=== PATIENT | female | born 1945 | race Caucasian/White ===

== ENCOUNTER → 2020-05-28 | Outpatient (CLI) | payer MEDICARE | END | disposition home or self-care (01) | LOC: SHCH 10:44 | PROVIDERS: ATTEND Internal Medicine Cardiovascular Disease | DX: R01.1 Cardiac murmur, unspecified (principal) | CPT/HCPCS: 93306; 93356 ==

== ENCOUNTER → 2020-06-01 | Outpatient (CLI) | payer MEDICARE ==
[~2020-06-01] MED LIST: AMINOPHYLLINE 250MG/10 ML VIAL IV SCH; REGADENOSON 0.4 MG/5 ML PF SYG IVP SCH
--- NOTE | 2020-06-01 11:56 | NUR ---
1031 AMINOPHYLLINE 50 MG GIVEN SLOW IV PUSH PER PROTOCOL FOR NAUSEA AND HEADACHE POST LEXISCAN. 1034 2ND DOSE OF AMINOPHYLLINE 50 MG GIVEN SLOW IV PUSH FOR PERSISTENT HEADACHE. PT REPORTS HEAD FEELS LIKE IT IS GOING TO EXPLODE. NAUSEA HAS SUBSIDED. 1036 PT REPORTS HEADACHE IS NOW SUBSIDING.
== END | disposition home or self-care (01) ==
LOC: SHCH 08:12 → EDUNIT# 09:00
PROVIDERS: ATTEND Internal Medicine Cardiovascular Disease
DX: I20.9 Angina pectoris, unspecified (principal); R07.9 Chest pain, unspecified
CPT/HCPCS: 78452; 93017; 96374; A9500 ×2; J2785

== ENCOUNTER → 2021-12-08 | Outpatient (CLI) | payer MEDICARE | END | disposition home or self-care (01) | LOC: SHCH 10:24 | PROVIDERS: ATTEND Internal Medicine Cardiovascular Disease | DX: I51.7 Cardiomegaly (principal) | CPT/HCPCS: 93306 ==

== ENCOUNTER 2022-03-23 13:21 | Day surgery (SDC) | payer MEDICARE ==
[~2022-03-23] VITALS: Ht 162.6 cm; Wt 62.6 kg
[2022-03-23] VITALS (8 sets, daily range): BP systolic 102–139; BP diastolic 53–91
[2022-03-23 14:12] LABS: HEMATOCRIT 45.8 % (36-48); MEAN CORPUSCULAR HEMOGLOBIN 32.3 pg (27.0-33.0); MEAN CORPUSCULAR HGB CONC 33.8 g/dL (32.0-36.0); MEAN CORPUSCULAR VOLUME 95.4 fL (79-99); PLATELET COUNT (AUTO) 277 K/uL (130-400); RED CELL DISTRIBUTION WIDTH 13.3 % (11.0-15.5)
[2022-03-23] MEDS ORDERED: FLUMAZENIL 0.1MG/1ML 5ML VIAL IV ONE (14:21)
[2022-03-23 14:22] LABS: CREATININE 0.9 mg/dL (0.5-1.5); POTASSIUM 4.8 mmol/L (3.5-5.1)
[2022-03-23] MEDS ORDERED: NALOXONE HCL 0.4 MG/1 ML ML ONE (14:22)
[2022-03-23] MEDS ORDERED: MIDAZOLAM HCL 1 MG/ML 2ML VIAL ONE (14:22)
[2022-03-23] MEDS ORDERED: FENTANYL CITRATE PF 50 MCG/1 ML 2ML VIAL ONE (14:22)
[2022-03-23] MEDS ORDERED: ADENOSINE 6MG VIAL IV SCH (14:30)
[2022-03-23] MEDS ORDERED: ROSU20TA31 PO (14:54)
[2022-03-23] MEDS ORDERED: LINA290C PO (14:54)
[2022-03-23] MEDS ORDERED: ARIP15TA18 PO (14:54)
[2022-03-23] MEDS ORDERED: DONE5TAB33 PO (14:54)
[2022-03-23] MEDS ORDERED: MEMA5TAB42 PO (14:54)
[2022-03-23] MEDS ORDERED: BUPR-317 PO (14:54)
[2022-03-23] MEDS ORDERED: LEVO125T95 PO (14:54)
[2022-03-23] MEDS ORDERED: DULO60CA64 PO (14:54)
[2022-03-23] MEDS ORDERED: METO-391 PO (14:54)
[2022-03-23 15:05] LABS: BAND NEUTROPHILS % (MANUAL) 2 % (0-2); LYMPHOCYTES % (MANUAL) 28 % (22-44); MONOCYTES % (MANUAL) 5 % (2-9); REACTIVE LYMPHOCYTES 20 % (0-0); SEGMENTED NEUTROPHILS % 45 % (40-70)
[2022-03-23 15:06] LABS: MAN.DIFF COMMENT-IMPRESSION MANUAL DIFFERENTIAL
== END 2022-03-23 15:15 | disposition home or self-care (01) ==
LOC: DAH 13:21
PROVIDERS: ATTEND Internal Medicine Cardiovascular Disease
DX: I47.1 Supraventricular tachycardia (principal); E78.5 Hyperlipidemia, unspecified; I87.2 Venous insufficiency (chronic) (peripheral); F32.A Depression, unspecified; E03.9 Hypothyroidism, unspecified; Z90.89 Acquired absence of other organs; Z98.890 Other specified postprocedural states; Z98.891 History of uterine scar from previous surgery; Z90.49 Acquired absence of other specified parts of digestive tract; Z90.710 Acquired absence of both cervix and uterus; Z82.49 Family history of ischemic heart disease and other diseases of the circulatory system; Z79.899 Other long term (current) drug therapy; Z79.01 Long term (current) use of anticoagulants
CPT/HCPCS: 93005; 80048; 85025; 36415; J3010; J2250; J0153; J2310; J3490

== ENCOUNTER → 2022-05-15 | Outpatient (CLI) | payer MEDICARE ==
[~2022-05-15] MED LIST changes: -AMINOPHYLLINE 250MG/10 ML VIAL IV SCH; +ARIP15TA18 PO; +BUPR-317 PO; +DONE5TAB33 PO; +DULO60CA64 PO; +LEVO125T95 PO; +LINA290C PO; +MEMA5TAB42 PO; -REGADENOSON 0.4 MG/5 ML PF SYG IVP SCH; +ROSU20TA31 PO
== END | disposition home or self-care (01) ==
LOC: SHCH 13:56
PROVIDERS: ATTEND Internal Medicine Cardiovascular Disease
DX: I47.1 Supraventricular tachycardia (principal); I51.89 Other ill-defined heart diseases; E78.5 Hyperlipidemia, unspecified
CPT/HCPCS: 93306